=== PATIENT | male | born 1960 | race African-American/Black ===

== ENCOUNTER 2018-03-30 09:19 | Emergency (ER) | payer OTHER ==
[~2018-03-30] VITALS: Ht 177.8 cm; Wt 77.1 kg
[2018-03-30 09:30] VITALS: BP 128/87
[2018-03-30 10:30] LABS: BASOPHILS % (AUTO) 0.9 % (0.0-2.0); EOSINOPHILS % (AUTO) 1.4 % (0.0-3.0); HEMATOCRIT 39.8 % (42.0-52.0); LYMPHOCYTES % (AUTO) 27.5 % (20.0-45.0); MEAN CORPUSCULAR VOLUME 91 FL (80-99); MONOCYTES % (AUTO) 9.8 % (1.0-10.0); NEUTROPHILS % (AUTO) 60.4 % (45.0-75.0); PLATELET COUNT 194 K/UL (150-450); RED BLOOD COUNT 4.37 M/UL (4.70-6.10); RED CELL DISTRIBUTION WIDTH 12.9 % (11.6-14.8); WHITE BLOOD COUNT 7.6 K/UL (4.8-10.8)
--- NOTE | 2018-03-30 10:42 | Emergency Room Report ---
History of Present Illness General Chief Complaint: Nosebleed Source: Patient, EMS Present Illness HPI Patient presents with complaints of epistaxis He reports that he was at [facility] yesterday Was discharged there was no further intervention performed Patient is on daily aspirin however denies any other anticoagulation He reports that off-and-on for the past 5 days he has had nasal bleeding And he feels that is probably from both sides denies any chest pain denies any back or flank pain patient has history of hypertension However he reports that he did feel lightheaded Allergies: Coded Allergies: No Known Allergies (Unverified , 03/30/18) Patient History Past Medical History: see triage record Pertinent Family History: none Reviewed Nursing Documentation: PMH: Agreed; PSxH: Agreed Nursing Documentation-PMH Past Medical History: No History, Except For Hx Cardiac Problems: Yes - arrythmia Hx Hypertension: Yes Hx Neurological Problems: Yes - Bipolar Review of Systems All Other Systems: negative except mentioned in HPI Physical Exam Vital Signs Date Time Temp Pulse Resp B/P (MAP) Pulse Ox O2 Delivery O2 Flow Rate FiO2 03/30/18 09:15 98.2 96 16 128/87 99 Room Air 98.2 Sp02 EP Interpretation: reviewed, normal General Appearance: mild distress Head: normocephalic, atraumatic Eyes: bilateral eye PERRL, bilateral eye EOMI ENT: other - Epistaxis bilaterally Neck: full range of motion, supple Respiratory: chest non-tender, lungs clear Cardiovascular #1: normal peripheral pulses, regular rate, rhythm, no edema Gastrointestinal: non tender, soft Musculoskeletal: normal inspection Neurologic: alert, oriented x3, responsive Skin: normal color, no rash Lymphatic: no adenopathy Procedures Additional Procedure Procedure Narrative Given the extensive bleeding patient had bilateral nasal packing performed 5.5 cm Rhino Rocket were placed patient on the procedure well and balloon was inflated with good blood control Medical Decision Making Diagnostic Impression: Primary Impression: Severe epistaxis Additional Impression: Nasal bone fractures ER Course Given the patient's presentation and history Initial packing is performed Bilateral nasal nares Patient did significant better initially however patient was itching the right side of his nose and the right nasal packing was removed accidentally Patient had CT imaging given the presentation Imaging shows multiple fractures and abnormal pathology Speaking further to the patient he denies any other fall or trauma Drug screen does show positive cocaine Raising question of chronic decay and pathology of the region Patient was provided with antibiotics here requires admission and further specialty consultation Secondary to insurance purposes I spoke to the accepting physician And patient will be transferred for further care Labs Test 03/30/18 10:09 03/30/18 12:35 White Blood Count 7.6 K/UL (4.8-10.8) Red Blood Count 4.37 M/UL (4.70-6.10) Hemoglobin 13.0 G/DL (14.2-18.0) Hematocrit 39.8 % (42.0-52.0) Mean Corpuscular Volume 91 FL (80-99) Mean Corpuscular Hemoglobin 29.8 PG (27.0-31.0) Mean Corpuscular Hemoglobin Concent 32.7 G/DL (32.0-36.0) Red Cell Distribution Width 12.9 % (11.6-14.8) Platelet Count 194 K/UL (150-450) Mean Platelet Volume 7.2 FL (6.5-10.1) Neutrophils (%) (Auto) 60.4 % (45.0-75.0) Lymphocytes (%) (Auto) 27.5 % (20.0-45.0) Monocytes (%) (Auto) 9.8 % (1.0-10.0) Eosinophils (%) (Auto) 1.4 % (0.0-3.0) Basophils (%) (Auto) 0.9 % (0.0-2.0) Prothrombin Time 9.9 SEC (9.30-11.50) Prothromb Time International Ratio 1.0 (0.9-1.1) Activated Partial Thromboplast Time 28 SEC (23-33) Sodium Level 144 MMOL/L (136-145) Potassium Level 3.7 MMOL/L (3.5-5.1) Chloride Level 109 MMOL/L (98-107) Carbon Dioxide Level 28 MMOL/L (21-32) Anion Gap 7 mmol/L (5-15) Blood Urea Nitrogen 28 mg/dL (7-18) Creatinine 1.4 MG/DL (0.55-1.30) Estimat Glomerular Filtration Rate 52.4 mL/min (>60) Glucose Level 123 MG/DL (74-106) Calcium Level 8.6 MG/DL (8.5-10.1) Total Bilirubin 0.2 MG/DL (0.2-1.0) Aspartate Amino Transf (AST/SGOT) 17 U/L (15-37) Alanine Aminotransferase (ALT/SGPT) 29 U/L (12-78) Alkaline Phosphatase 69 U/L (46-116) Total Creatine Kinase 151 U/L (26-308) Creatine Kinase MB 1.8 NG/ML (0.0-3.6) Creatine Kinase MB Relative Index 1.1 Total Protein 6.3 G/DL (6.4-8.2) Albumin 2.5 G/DL (3.4-5.0) Globulin 3.8 g/dL Albumin/Globulin Ratio 0.7 (1.0-2.7) Serum Alcohol < 3 mg/dL Urine Opiates Screen Negative (NEGATIVE) Urine Barbiturates Screen Negative (NEGATIVE) Phencyclidine (PCP) Screen Negative (NEGATIVE) Urine Amphetamines Screen Negative (NEGATIVE) Urine Benzodiazepines Screen Negative (NEGATIVE) Urine Cocaine Screen Positive (NEGATIVE) Urine Marijuana (THC) Screen Negative (NEGATIVE) Rhythm Strip Diag. Results EP Interpretation: yes Rate: 77 Rhythm: NSR, no PVC's, no ectopy CT/MRI/US Diagnostic Results CT/MRI/US Diagnostic Results : Impression CT facial for to report for full specifics multiple bilateral nasal fractures deviation Last Vital Signs Date Time Temp Pulse Resp B/P (MAP) Pulse Ox O2 Delivery O2 Flow Rate FiO2 03/30/18 09:30 98.2 16 128/87 99 Room Air 98.2 03/30/18 09:15 96 Status: improved Disposition: XFER SHT-TRM HOSP Condition: Serious Referrals: NOT CHOSEN IPA/,REFERRING (PCP) Sulma Michaud DO March 30, 2018 10:42
[2018-03-30 10:43] LABS: ANION GAP 7 mmol/L (5-15); BLOOD UREA NITROGEN 28 mg/dL (7-18); CALCIUM 8.6 MG/DL (8.5-10.1); CARBON DIOXIDE 28 MMOL/L (21-32); CHLORIDE 109 MMOL/L (98-107); CREATININE 1.4 MG/DL (0.55-1.30); POTASSIUM 3.7 MMOL/L (3.5-5.1); SODIUM 144 MMOL/L (136-145)
[2018-03-30 10:56] LABS: ALANINE AMINOTRANSFERASE 29 U/L (12-78); ALBUMIN 2.5 G/DL (3.4-5.0); ALBUMIN/GLOBULIN RATIO 0.7 (1.0-2.7); ALKALINE PHOSPHATASE 69 U/L (46-116); ASPARTATE AMINO TRANSFERASE 17 U/L (15-37); BILIRUBIN,TOTAL 0.2 MG/DL (0.2-1.0); CKMB 1.8 NG/ML (0.0-3.6); CREATINE KINASE 151 U/L (26-308)
[2018-03-30 10:57] VITALS: BP 117/93
[2018-03-30] MEDS ORDERED: Ampicillin/Sulbactam Sod 3 GM in NS 110 ML IVPB ONE (11:30)
[2018-03-30 13:00] VITALS: BP_SYST 112; BP_SYST 121; BP_DIAS 78
[2018-03-30 15:00] VITALS: BP 139/96
[2018-03-30 15:35] VITALS: BP 139/96
--- NOTE | 2018-04-03 19:42 | Cardiology Report ---
APPROVED REPORT EKG Measurement Heart [id number] Normal sinus rhythm Biatrial enlargement Left ventricular hypertrophy T wave abnormality, consider inferolateral ischemia Abnormal ECG
--- NOTE | 2018-04-04 13:42 | Diagnostic Imaging Report ---
Indication: Trauma. Facial pain Technique: Continuous helical transaxial imaging of the maxillofacial structures obtained without intravenous contrast administration. Coronal 2-D reformats were also obtained. Study obtained in a Siemens sensation [address] Automatic Exposure Control was utilized. Total Dose length Product (DLP): 590.[address] Dose Index Volume (CTDIvol): 28.19 mGy Comparison: None Findings: Comminuted nasal bone fracture is demonstrated. There is mild displacement on the left. There is a moderate degree of the blood within the nasal cavity. There is a probable fracture of the anterior nasal septum is well. No other fractures are identified. There are bilateral air-fluid levels within the maxillary sinus without associated fracture. The orbits are symmetric and unremarkable. The mandible is intact. In the lower teeth that are areas of periapical lucency involving the posterior right molar and anterior left molar suspicious for periapical or root abscess. Correlate with the dental exam. IMPRESSION: Comminuted bilateral nasal fracture. Bilateral maxillary air-fluid levels presumably sinusitis. Given the trauma, there is concern this could represent blood. There are no associated maxillary wall fractures identified. Suspicion of periapical or root abscesses involving bilateral molar regions. [facility] has communicated the preliminary results to the Emergency Department. Their findings are largely concordant with this report. The CT scanner at [facility] is accredited by the [employer] and the scans are performed using dose optimization techniques as appropriate to a performed exam including Automatic Exposure control.
== END 2018-03-30 15:35 | disposition short-term general hospital (02) ==
LOC: EDBD 09:19 → EMR 09:33
DX: R04.0 Epistaxis (principal); S02.2XXA Fracture of nasal bones, initial encounter for closed fracture; X58.XXXA Exposure to other specified factors, initial encounter; Y92.9 Unspecified place or not applicable; I10 Essential (primary) hypertension; F31.9 Bipolar disorder, unspecified
CPT/HCPCS: 36415; 70486; 80053; 80307; 80329; 82550; 82553; 85025; 85610; 85730; 93005; 96374; 96375; 99285; J2405